=== PATIENT | female | born 1975 | race Caucasian/White ===

== ENCOUNTER 2019-08-17 08:39 | Emergency (ER) | payer SELFPAY ==
[2019-08-17] MEDS ORDERED: ONDANSETRON 4 MG/2 ML VIAL ONE (09:08)
[2019-08-17] MEDS ORDERED: MORPHINE 4 MG/ML SYR ONE (09:08)
[2019-08-17] MEDS ORDERED: NA CHLORIDE 0.9% 1,000 ML ONE (09:08)
[2019-08-17 09:31] LABS: Absolute Lymphocytes (CBC) 2.6 K/uL (0.7-4.9); Basophils % 0.2 % (0-1.3); Hematocrit 36.7 % (36.0-45.0); Lymphocytes % 21.7 % (15.3-44.8); MPV 8.9 fL (7.6-11.3); RBC Red Blood Cell Count 5.05 M/uL (3.86-4.86)
[2019-08-17 09:34] LABS: Protime INR 1.11
--- NOTE | 2019-08-17 09:46 | RAD REPORT ---
EXAM DESCRIPTION: Mary Jo Single View08/17/2019 9:34 am CLINICAL HISTORY: Abdominal pain COMPARISON: none FINDINGS: The lungs appear clear of acute infiltrate. The heart is normal size IMPRESSION: No acute abnormalities displayed
[2019-08-17 09:50] LABS: ALT/SGPT 17 U/L (12-78); AST/SGOT 6 U/L (15-37); Albumin 3.6 g/dL (3.4-5.0); Alkaline Phosphatase 87 U/L (45-117); BUN Blood Urea Nitrogen 11 mg/dL (7-18); Bicarbonate 22 mmol/L (21-32); Bilirubin Direct < 0.1 mg/dL (0-0.2); Bilirubin Total 0.4 mg/dL (0.2-1.0); Glucose Level 148 mg/dL (74-106); Magnesium 1.8 mg/dL (1.8-2.4); NT PRO-BNP 70 pg/mL (<125); Potassium 3.7 mmol/L (3.5-5.1); Protein, Total 6.9 g/dL (6.4-8.2); Sodium Level 139 mmol/L (136-145); Troponin (Emerg Dept Use Only) < 0.02 ng/mL (0.0-0.045)
[2019-08-17] MEDS ORDERED: CEFTRIAXONE/SWI 1gm 1 GM/10 ML SYR ONE (10:39)
[2019-08-17 10:55] LABS: Urine Blood NEGATIVE (NEG); Urine Glucose NEGATIVE (NEG); Urine Protein NEGATIVE (NEG); Urine Specific Gravity 1.015 (1.005-1.030); Urine pH 8.5 (5.0-7.0)
--- NOTE | 2019-08-17 10:55 | RAD REPORT ---
EXAM DESCRIPTION: CTAbdomen Pelvis W Contrast - 08/17/2019 10:45 am CLINICAL HISTORY: Abdominal pain. ABD PAIN COMPARISON: No comparisons TECHNIQUE: Biphasic CT imaging of the abdomen and pelvis was performed with 100 ml non-ionic IV cont rast. All CT scans are performed using dose optimization technique as appropriate and may include automated exposure control or mA/KV adjustment according to patient size. FINDINGS: The lung bases are clear. The liver contains a small cyst in the left lobe measuring 13 mm. Spleen, pancreas, adrenal glands ar e within normal limits. Small nonobstructing inferior right renal calculi. Multiple benign appearing renal cysts are present bilaterally. No bowel obstruction, free air, intra-abdominal free fluid or abscess. Small fat containing umbilical hernia. The appendix is normal. No evidence of significant lymphadenopathy. No suspicious bony findings. Trace pelvic free fluid is present. IMPRESSION: No acute intra-abdominal or pelvic finding. Trace pelvic free fluid.
--- NOTE | 2019-08-17 11:08 | ER ---
Nurse's Notes [facility] Name: Yokasta Quinn Age: 44 yrs Sex: Female : 1975 Arrival Date: 08/17/2019 Time: 08:40 Bed 2 Private MD: Diagnosis: Pelvic and perineal pain;Dyspareunia Presentation: 08/17 08:55 Presenting complaint: Patient states: lower abd pain/pelvic pain this morning, states iw it started Saturday after having sex but it wasn't bad, today she had sex again and the pain was more severe, +nausea, +diarrhea this morning, no vomiting, denies pain with urination. Transition of care: patient was not received from another setting of care. Onset of symptoms was August 17, 2019. Risk Assessment: Do you want to hurt yourself or someone else? Patient reports no desire to harm self or others. Initial Sepsis Screen: Does the patient meet any 2 criteria? No. Patient's initial sepsis screen is negative. Does the patient have a suspected source of infection? No. Patient's initial sepsis screen is negative. Care prior to arrival: None. 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 - Coronavirus screen:: The patient has NOT traveled to [place], [place], or [place] in the past 14 days. Proceed with normal triage process as indicated. - Social history:: Smoking status: Patient reports the use of cigarette tobacco products, smokes two packs cigarettes per day. - Family history:: not pertinent. - Ebola Screening: : Patient negative for fever greater than or equal to 101.5 degrees Fahrenheit, and additional compatible Ebola Virus Disease symptoms Patient denies exposure to infectious person Patient denies travel to an Ebola-affected area in the 21 days before illness onset No symptoms or risks identified at this time. Screenin:15 Abuse screen: Denies threats or abuse. Nutritional screening: No deficits noted. em Tuberculosis screening: No symptoms or risk factors identified. Fall Risk None identified. Assessment: 09:15 General: Appears uncomfortable, Behavior is calm, cooperative, appropriate for age, em Denies fever. Pain: Complains of pain in pelvis Pain currently is 10 out of 10 on a pain scale. Pain began 2 hours ago. Neuro: Level of Consciousness is awake, alert, obeys commands, Oriented to person, place, time, situation, Appropriate for age. Cardiovascular: Capillary refill < 3 seconds Patient's skin is warm and dry. Respiratory: Airway is patent Respiratory effort is even, unlabored, Respiratory pattern is regular, symmetrical. GI: Abdomen is flat, Bowel sounds present X 4 quads. Abd is soft and non tender X 4 quads. Reports nausea, vomiting. : Denies burning with urination. Derm: Skin is intact, is healthy with good turgor, Skin is pink, warm \T\ dry. Musculoskeletal: Capillary refill < 3 seconds, Range of motion: intact in all extremities. 09:30 Reassessment: Patient appears in no apparent distress at this time. Patient and/or em family updated on plan of care and expected duration. Pain level reassessed. Patient is alert, oriented x 3, equal unlabored respirations, skin warm/dry/pink. rates pain 3/10 Patient states feeling better. Patient states symptoms have improved. 10:30 Reassessment: Patient appears in no apparent distress at this time. Patient and/or em family updated on plan of care and expected duration. Pain level reassessed. Patient is alert, oriented x 3, equal unlabored respirations, skin warm/dry/pink. Patient states feeling better. Patient states symptoms have improved. Vital Signs: 08:57 BP 120 / 84; Pulse 93; Resp 18 S; Temp 97.0; Pulse Ox 100% on R/A; Weight 72.57 kg; iw Height 5 ft. 3 in. (160.02 cm); Pain 10/10; 09:30 BP 113 / 78; Pulse 92; Resp 18; Pulse Ox 99% on R/A; Pain 3/10; em 11:00 BP 99 / 61; Pulse 88; Resp 18; Pulse Ox 100% on R/A; Pain 3/10; em 08:57 Body Mass Index 28.34 (72.57 kg, 160.02 cm) ED Course: 08:40 Patient arrived in ED. mr 08:41 Oleksandr Musa, RN is Primary Nurse. bp 08:49 Solo Browne MD is Attending Physician. vladimir 08:57 Triage completed. iw 08:57 Arm band placed on. iw 09:15 Patient has correct armband on for positive identification. Placed in gown. Bed in low em position. Call light in reach. Side rails up X2. Adult w/ patient. Pulse ox on. NIBP on. 09:15 Initial lab(s) drawn, by me, sent to lab. T\T\S collected, blood band applied to patient. em Inserted saline lock: 20 gauge in left antecubital area, using aseptic technique. Blood collected. 09:21 EKG done, by nuclear plant technical advisor. reviewed by Solo Browne MD. at1 09:34 XRAY Chest (1 view) In Process Unspecified. EDMS 10:09 Radiology exam delayed due to test not completed at this time. vm2 10:30 Assist provider with pelvic exam: Set up pelvic tray. Performed by Solo Browne MD aa5 Patient tolerated well. No trauma noted to vagina or cervix reported by Dr. Browne. 10:46 CT Abd/Pelvis - IV Contrast Only In Process Unspecified. EDMS 11:07 Merritt Coronel MD is Referral Physician. vladimir 11:40 IV discontinued, intact, bleeding controlled, No redness/swelling at site. Pressure em dressing applied. Administered Medications: 09:15 Drug: NS 0.9% 1000 ml Route: IV; Rate: 1 bolus; Site: left antecubital; em 11:18 Follow up: IV Status: Completed infusion; IV Intake: 1000ml em 09:15 Drug: Zofran 4 mg Route: IVP; Site: left antecubital; em 09:29 Follow up: Response: No adverse reaction em 09:17 Drug: morphine 4 mg Route: IVP; Site: left antecubital; em 09:29 Follow up: Response: No adverse reaction; Marked relief of symptoms; Pain is decreased; em RASS: Alert and Calm (0) 10:37 Drug: Rocephin 1 grams Route: IV; Rate: per protocol; Site: left antecubital; em 11:19 Follow up: Response: No adverse reaction; IV Status: Completed infusion; IV Intake: 10mlem Intake: 11:18 IV: 1000ml; Total: 1000ml. em 11:19 IV: 10ml; Total: 1010ml. em Outcome: 11:07 [facility] 11:43 Discharged to home ambulatory, with family. em 11:43 Condition: good 11:43 Discharge instructions given to patient, family, Instructed on discharge instructions, follow up and referral plans. no drinking with medication, no driving heavy equipment, medication usage, safe sex practices, Demonstrated understanding of instructions, follow-up care, medications, Prescriptions given X 2. 11:43 Patient left the ED. em Signatures: Dispatcher [employer] EDMS Solo Browne MD MD cha Rivera, Asya Get Rose, RN RN Rosy Cosme, RN Jaymie Dickerson RN RN aa5 Khushboo Khan, right of way appraiser EKG Tat1 Yolie Chavez vm2 Oleksandr Musa RN RN bp
--- NOTE | 2019-08-17 11:08 | EDPHYS ---
Physician Documentation [facility] Name: Yokasta Quinn Age: 44 yrs Sex: Female : 1975 Arrival Date: 08/17/2019 Time: 08:40 Bed 2 Private MD: ED Physician Solo Browne HPI: 08/17 10:12 This 44 yrs old Female presents to ER via Wheelchair with complaints of vladimir Abdominal Pain, Pelvic Pain. 10:12 The patient has shortness of breath at rest. Onset: The symptoms/episode began/occurred vladimir just prior to arrival, this morning. 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 - Coronavirus screen:: The patient has NOT traveled to [place], [place], or [place] in the past 14 days. Proceed with normal triage process as indicated. - Social history:: Smoking status: Patient reports the use of cigarette tobacco products, smokes two packs cigarettes per day. - Family history:: not pertinent. - Ebola Screening: : Patient negative for fever greater than or equal to 101.5 degrees Fahrenheit, and additional compatible Ebola Virus Disease symptoms Patient denies exposure to infectious person Patient denies travel to an Ebola-affected area in the 21 days before illness onset No symptoms or risks identified at this time. ROS: 10:13 Constitutional: Negative for fever, chills, and weight loss, Eyes: Negative for injury, vladimir pain, redness, and discharge, ENT: Negative for injury, pain, and discharge, Neck: Negative for injury, pain, and swelling, Cardiovascular: Negative for chest pain, palpitations, and edema, Abdomen/GI: Negative for abdominal pain, nausea, vomiting, diarrhea, and constipation, Back: Negative for injury and pain, MS/Extremity: Negative for injury and deformity, Skin: Negative for injury, rash, and discoloration, Neuro: Negative for headache, weakness, numbness, tingling, and seizure, Psych: Negative for depression, anxiety, suicide ideation, homicidal ideation, and hallucinations, Allergy/Immunology: Negative for hives, rash, and allergies, Endocrine: Negative for neck swelling, polydipsia, polyuria, polyphagia, and marked weight changes, Hematologic/Lymphatic: Negative for swollen nodes, abnormal bleeding, and unusual bruising. 10:13 Respiratory: Positive for shortness of breath. 10:13 Abdomen/GI: Positive for abdominal pain, abdominal cramps, of the suprapubic area, right lower quadrant and left lower quadrant. Exam: 10:13 Constitutional: This is a well developed, well nourished patient who is awake, alert, vladimir and in no acute distress. Head/Face: Normocephalic, atraumatic. Eyes: Pupils equal round and reactive to light, extra-ocular motions intact. Lids and lashes normal. Conjunctiva and sclera are non-icteric and not injected. Cornea within normal limits. Periorbital areas with no swelling, redness, or edema. ENT: Nares patent. No nasal discharge, no septal abnormalities noted. Tympanic membranes are normal and external auditory canals are clear. Oropharynx with no redness, swelling, or masses, exudates, or evidence of obstruction, uvula midline. Mucous membranes moist. Neck: Trachea midline, no thyromegaly or masses palpated, and no cervical lymphadenopathy. Supple, full range of motion without nuchal rigidity, or vertebral point tenderness. No Meningismus. Chest/axilla: Normal chest wall appearance and motion. Nontender with no deformity. No lesions are appreciated. Cardiovascular: Regular rate and rhythm with a normal S1 and S2. No gallops, murmurs, or rubs. Normal PMI, no JVD. No pulse deficits. Respiratory: Lungs have equal breath sounds bilaterally, clear to auscultation and percussion. No rales, rhonchi or wheezes noted. No increased work of breathing, no retractions or nasal flaring. Back: No spinal tenderness. No costovertebral tenderness. Full range of motion. Female : Normal external genitalia. Skin: Warm, dry with normal turgor. Normal color with no rashes, no lesions, and no evidence of cellulitis. MS/ Extremity: Pulses equal, no cyanosis. Neurovascular intact. Full, normal range of motion. Neuro: Awake and alert, GCS 15, oriented to person, place, time, and situation. Cranial nerves II-XII grossly intact. Motor strength 5/5 in all extremities. Sensory grossly intact. Cerebellar exam normal. Normal gait. Psych: Awake, alert, with orientation to person, place and time. Behavior, mood, and affect are within normal limits. 10:13 : CVA tenderness, is absent, Pelvic Exam: External exam: is normal, Speculum exam: normal findings, no bleeding is noted, bimanual exam reveals no cervical motion tenderness, os that is closed, normal sized uterus, discharge, is not appreciated, the nurse was present for the exam, Bladder: tenderness, that is mild, Rectal exam: is normal, Sexual behavior: the patient is sexually active, and reports a single partner. 10:13 Musculoskeletal/extremity: Extremities: all appear grossly normal, with no appreciated pain with palpation, ROM: no acute changes, intact in all extremities, Circulation is intact in all extremities. Pulses: Sensation intact. Compartment Syndrome exam of affected extremity: is normal. DVT Exam: no pain, no swelling, no tenderness, negative Homans' sign noted on exam, no appreciated bluish discoloration, no erythema, no increased warmth. Vital Signs: 08:57 BP 120 / 84; Pulse 93; Resp 18 S; Temp 97.0; Pulse Ox 100% on R/A; Weight 72.57 kg; iw Height 5 ft. 3 in. (160.02 cm); Pain 10/10; 09:30 BP 113 / 78; Pulse 92; Resp 18; Pulse Ox 99% on R/A; Pain 3/10; em 11:00 BP 99 / 61; Pulse 88; Resp 18; Pulse Ox 100% on R/A; Pain 3/10; em 08:57 Body Mass Index 28.34 (72.57 kg, 160.02 cm) iw MDM: 08:49 Patient medically screened. [facility] 10:15 Data reviewed: vital signs, nurses notes, lab test result(s), radiologic studies, [facility] ultrasound. 08/17 08:56 Order name: Basic Metabolic Panel; Complete Time: 10:32 vladimir 08/17 08:56 Order name: CBC with Diff; Complete Time: 09:40 [facility] 08/17 08:56 Order name: LFT's; Complete Time: 10:32 vladimir 08/17 08:56 Order name: Magnesium; Complete Time: 10:32 08/17 08:56 Order name: NT PRO-BNP; Complete Time: 10:32 08/17 08:56 Order name: PT-INR; Complete Time: 09:40 08/17 08:56 Order name: Troponin (emerg Dept Use Only); Complete Time: 10:32 08/17 08:56 Order name: XRAY Chest (1 view); Complete Time: 10:32 08/17 08:56 Order name: CT Abd/Pelvis - IV Contrast Only; Complete Time: 11:07 08/17 08:56 Order name: Type And Screen; Complete Time: 10:32 08/17 10:12 Order name: Urine Culture 08/17 10:37 Order name: Urine Dipstick--Ancillary (enter results); Complete Time: 11:07 08/17 10:37 Order name: Urine --Ancillary (enter results); Complete Time: 11:07 08/17 08:56 Order name: EKG; Complete Time: 08:57 08/17 08:56 Order name: Cardiac monitoring; Complete Time: 09:27 08/17 08:56 Order name: EKG - Nurse/Tech; Complete Time: 09:27 08/17 08:56 Order name: IV Saline Lock; Complete Time: 09:27 08/17 08:56 Order name: Labs collected and sent; Complete Time: 09:27 08/17 08:56 Order name: O2 Per Protocol; Complete Time: 09:27 08/17 08:56 Order name: O2 Sat Monitoring; Complete Time: 09:27 08/17 08:56 Order name: Urine Dipstick-Ancillary (obtain specimen); Complete Time: 10:42 08/17 08:56 Order name: Urine Test (obtain specimen); Complete Time: 10:42 08/17 08:56 Order name: Pelvic Exam Setup; Complete Time: 10:43 [facility] Administered Medications: 09:15 Drug: NS 0.9% 1000 ml Route: IV; Rate: 1 bolus; Site: left antecubital; em 11:18 Follow up: IV Status: Completed infusion; IV Intake: 1000ml em 09:15 Drug: Zofran 4 mg Route: IVP; Site: left antecubital; em 09:29 Follow up: Response: No adverse reaction em 09:17 Drug: morphine 4 mg Route: IVP; Site: left antecubital; em 09:29 Follow up: Response: No adverse reaction; Marked relief of symptoms; Pain is decreased; em RASS: Alert and Calm (0) 10:37 Drug: Rocephin 1 grams Route: IV; Rate: per protocol; Site: left antecubital; em 11:19 Follow up: Response: No adverse reaction; IV Status: Completed infusion; IV Intake: 10mlem Disposition: 08/17/19 11:07 Discharged to Home. Impression: Pelvic and perineal pain, Dyspareunia. - Condition is Fair. - Discharge Instructions: Pelvic Pain, Female, Pelvic Pain, Female, [id number], Abdominal Pain, Adult, [id number]. - Prescriptions for Tylenol- Codeine #3 300-30 mg Oral Tablet - take 2 tablets by ORAL route every 6 hours As needed; 20 tablet. Bactrim DS 800- 160 mg Oral Tablet - take 1 tablet by ORAL route every 12 hours for 7 days; 14 tablet. - Medication Reconciliation Form, Thank You Letter, Antibiotic Education, Prescription Opioid Use form. - Follow up: Private Physician; When: 2 - 3 days; Reason: Recheck today's complaints, Continuance of care, Re-evaluation by your physician. Follow up: Merritt Coronel; When: 2 - 3 days; Reason: Recheck today's complaints, Continuance of care, Re-evaluation by your physician. - Problem is new. - Symptoms have improved. Signatures: Dispatcher [employer] EDSolo Ocasio MD MD cha Munoz, Edgar, RN RN Rosy Bruce RN RN iw Corrections: (The following items were deleted from the chart) 11:43 11:07 08/17/2019 11:07 Discharged to Home. Impression: Pelvic and perineal pain; em Dyspareunia. Condition is Fair. Discharge Instructions: Pelvic Pain, Female, Pelvic Pain, Female, [id number], Abdominal Pain, Adult, [id number]. Prescriptions for Tylenol-Codeine #3 300-30 mg Oral Tablet - take 2 tablets by ORAL route every 6 hours As needed; 20 tablet, Bactrim DS 800-160 mg Oral Tablet - take 1 tablet by ORAL route every 12 hours for 7 days; 14 tablet. and Forms are Medication Reconciliation Form, Thank You Letter, Antibiotic Education, Prescription Opioid Use. Follow up: Private Physician; When: 2 - 3 days; Reason: Recheck today's complaints, Continuance of care, Re-evaluation by your physician. Follow up: Merritt Coronel; When: 2 - 3 days; Reason: Recheck today's complaints, Continuance of care, Re-evaluation by your physician. Problem is new. Symptoms have improved. vladimir
[2019-08-17 11:50] VITALS: TEMP 97
[2019-08-17 11:53] VITALS: BP 99/61; O2SAT 100
--- NOTE | 2019-08-17 12:25 | EKG ---
Test Date: 2019-08-17 Test Time: 09:12:51 Cyber Systems Administrator: RENATA MEASUREMENT RESULTS: Intervals: Rate: 82 WY: 124 QRSD: 84 QT: 398 QTc: 464 [place]: P: 50 WY: 124 QRS: -28 T: 49 INTERPRETIVE STATEMENTS: Normal sinus rhythm Nonspecific T wave abnormality Prolonged QT Abnormal ECG No previous ECG available for comparison Electronically Signed On 08-17-19 12:24:28 ASPHALT ENGINEER by Carlos Cintron
== END 2019-08-17 11:43 | disposition home or self-care (01) ==
LOC: ER 08:39
DX: N94.10 Unspecified dyspareunia (principal); I10 Essential (primary) hypertension; F17.210 Nicotine dependence, cigarettes, uncomplicated
CPT/HCPCS: 36415; 71045; 74177; 80048; 80076; 81003; 81025; 83735; 83880; 84484; 85025; 85610; 86850; 86900; 86901; 87086; 87088; 93005; 96361; 96365; 96375; 99284; J0696; J2405; J7030; Q9967